=== PATIENT | female | born 1995 | race Caucasian/White ===

== ENCOUNTER 2017-01-18 22:05 | Emergency (ER) | payer BC, OTHER ==
--- NOTE | ~2017-01-18 | CT16 ---
[facility] A Service [facility] RADIOLOGY TEXT RESULTS PATIENT: EDGAR HELTON LOCATION: SED : [birth year] UNIT #: [id number] AGE: [address]: Rob Middleton SEX: F ORDER DR: [id number] [place] [address] [id number] E MR#: [id number] Acc #: [id number] NAME: EDGAR HELTON : 1995 SEX: F STUDY DATE/TIME: 01/18/2017 23:47 UNIT: SED ROOM: STUDY DESCRIPTION: CT Angio Chest for PE Attending Physician: Rob Middleton P.A.-C. Ordering Physician: Rob Middleton P.A.-C. Primary Care Physician: Jessica Rivera A.P.R.N. MEDICAL IMAGING REPORT This report is preliminary unless electronic signature is present. EXAM CTA chest, PE protocol. INDICATIONS Chest and back pain with cough for the past few weeks. PROCEDURE Contrast-enhanced CTA of the chest with attention on opacification of pulmonary arteries. Coronal 3-D MIP and sagittal reformatted images reconstructed and submitted. This CT exam was performed with one or more of the following radiation dose reduction techniques: automatic exposure control, adjustment of mA and/or kV according to patient size, and iterative reconstruction. COMPARISON None. FINDINGS No evidence for pulmonary embolus or aortic injury. No adenopathy. No acute findings in the upper abdomen. No aggressive appearing bone lesion. IMPRESSION No acute findings. No evidence for pulmonary embolus. Dictated by... Blade Martinez M.D. THIS IS AN ELECTRONICALLY VERIFIED REPORT Blade Martinez M.D. at 01/22/2017 7:18 AM EED/malik TD: 01/19/2017 08:41 [facility] A Service [facility] RADIOLOGY TEXT RESULTS PATIENT: EDGAR HELTON LOCATION: SED : 97 UNIT #: [id number] AGE: [address]: Rob Middleton SEX: F ORDER DR: JESUS #: [id number] MEDICAL IMAGING REPORT Page 1 of 1
[~2017-01-18 22:05] MED LIST: BIRTH CONTROL PO; CLARITIN10 MG PO; FLAGYL PO; HYDROCORTISON28.4 G3 TP; IBUPROFEN800 MG PO; MIRALAX17 GM PO; PHENERGAN25 M1 PO; ZOFRAN ODT4 MG PO
[2017-01-18] MEDS ORDERED: ANTI-ANXIETY MED (22:22)
[2017-01-18 23:27] LABS: BASOPHIL% 0.4 % (0-2.5); EOSINOPHIL# 0.1 X10e3 (0-0.7); EOSINOPHIL% 1.4 % (0.0-7.0); HEMATOCRIT 39.6 % (35.0-45.0); HEMOGLOBIN 13.7 gm/dL (12.0-16.0); LYMPHOCYTE# 3.2 X10e3 (1.0-3.5); LYMPHOCYTE% 51.5 % (17.0-45.0); MEAN CELL VOLUME 84.1 FL (83-96); MEAN CORPUSCULAR HEMOGLOBIN 29.1 PG (28-34); MEAN CORPUSCULAR HGB CONC 34.6 g/dL (30-36); MONOCYTE# 0.6 X10e3 (0-1.0); MONOCYTE% 9.4 % (3.0-12.0); NEUTROPHIL# 2.3 X10e3 (1.5-7.1); NEUTROPHIL% 37.3 % (40-75); PLATELET COUNT 252 X10e3 (140-420); RED BLOOD COUNT 4.71 X10e (3.90-5.30); RED CELL DISTRIBUTION WIDTH 12.7 % (11.0-15.5); WHITE BLOOD COUNT 6.3 X10e3 (4.0-10.5)
[2017-01-18 23:29] LABS: DIFF IND YES
[2017-01-18 23:40] LABS: CALCIUM SERUM 9.1 mg/dL (8.4-10.2); CREATININE SERUM 0.8 mg/dL (0.6-1.4); GLOM FILT RATE Estimated 106.2 mL/min (>60); POTASSIUM 3.6 mmol/L (3.5-5.1)
[2017-01-18 23:48] LABS: PLATELET ESTIMATE NORMAL (NORMAL)
[2017-01-18 23:49] LABS: RBC NORMAL YES
== END 2017-01-19 01:22 | disposition home or self-care (01) ==
LOC: SED 22:05
PROVIDERS: Physician Assistant
DX: R09.1 Pleurisy (principal)
CPT/HCPCS: 36415; 71275; 80048; 85025; 85379; 96361; 96374; 99284; J1885; Q9967